=== PATIENT | female | born 1985 | race Two or more races ===

== ENCOUNTER 2019-07-21 04:33 | Observation (INO) ==
[2019-07-21] MEDS ORDERED: ONDANSETRON 4 MG/2 ML VIAL IV STA (04:48)
[2019-07-21] MEDS ORDERED: SODIUM CHLORIDE 0.9% 2,000 ML IV STA (04:48)
[2019-07-21 04:59] LABS: Basophils % 0.3 % (0.0-0.8); Eosinophils % 0.2 % (0.00-10.9); Immature Granulocytes % 0.3 %; Immature Granulocytes Absolute 0.02 #; Lymphocytes # 0.8 10*3/uL (1.4-4.0); Lymphocytes % 12.7 % (21.3-54.2); Mean Corpuscular HGB Conc 28.8 GM/DL (32-36); Mean Corpuscular Volume 67.5 FL (87-102); Mean Platelet Volume 10.2 FL (9.6-12.0); Neutrophils % 82.5 % (38.7-73.9); Platelet Count 271 T/CUMM (130-400); Red Blood Count 5.35 MC/CUMM (3.8-5.5); Red Cell Distribution Width 25.5 % (9.3-17.3); White Blood Count 6.5 T/CUMM (4-12)
[2019-07-21 05:24] LABS: Alanine Aminotransferase 30 U/L (13-56); Albumin 4.1 G/DL (3.4-5.0); Alkaline Phosphatase 80 U/L (45-117); Aspartate Amino Transferase 27 U/L (0-37); Bilirubin,Total < 0.39 MG/DL (0.2-1.0); Blood Urea Nitrogen 11 MG/DL (7-18); Calcium 9.5 MG/DL (8.5-10.1); Glucose 106 MG/DL (74-106); Osmolality,Calculated 268.1 MOS/KG (273-304); Total Protein 8.9 G/DL (6.4-8.3)
[2019-07-21 05:25] LABS: Hematocrit 35.8 VOL% (35.7-47.0); Hemoglobin 10.4 GM/DL (12.0-16.0)
[2019-07-21 05:34] LABS: Hypochromasia Slight; Platelet Estimate Normal
[2019-07-21] MEDS ORDERED: ONDANSETRON 4 MG/2 ML VIAL IV PRN (06:26)
[2019-07-21] MEDS ORDERED: HYDROmorphone 2 MG/1 ML VIAL IV PRN (06:26)
[2019-07-21] MEDS ORDERED: MORPHINE 4 MG/1 ML VIAL IV STA (06:26)
[2019-07-21] MEDS: DEXTROSE 5% LACTATED RINGERS 1,000 ML IV SCH ×2 (07:43→15:30)
[2019-07-21] MEDS: PANTOPRAZOLE 40 MG VIAL IV SCH (10:30)
[2019-07-21 13:10] LABS: Apearance,Urine CLEAR (Clear); Bilirubin,Urine Negative (Negative); Blood, Urine Negative (Negative); Glucose,Urine (UA) Negative (Negative); Ketones,Urine 20 mg/dL (Negative); Nitrite,Urine Negative (Negative); Protein,Urine Negative; RBC,Urine 3 /HPF (0-4); Urine Color Yellow (Yellow); Urine Specific Gravity 1.017 (1.001-1.035); Urine Urobilinogen < 2.0 EU/DL (0.2-1.0); WBC,Urine <1 /HPF (0-6)
[2019-07-22] MEDS: DEXTROSE 5% LACTATED RINGERS 1,000 ML IV SCH (03:00)
[2019-07-22] MEDS: PANTOPRAZOLE 40 MG VIAL IV SCH (10:22)
[2019-07-23 07:40] VITALS: BP 98/62
[2019-07-23] MEDS: PANTOPRAZOLE 40 MG VIAL IV SCH (09:04)
== END 2019-07-23 11:02 | disposition home or self-care (01) ==
LOC: N.EDINP 04:33 → N.ED 04:33 → N.3E 09:03
PROVIDERS: ADMIT Surgery; ATTEND Surgery